=== PATIENT | male | born 1935 | race Caucasian/White ===

== ENCOUNTER 2022-02-09 04:40 | Day surgery (SDC) | payer OTHER, BC ==
[2022-02-08 14:04] VITALS: BMI 30.2
[2022-02-09 11:52] VITALS: TEMP 97.3
[2022-02-09 12:56] VITALS: BP 115/53; PULSE 53; RESP 16
== END 2022-02-09 12:56 | disposition home or self-care (01) ==
LOC: JASU-ENDO 04:40
PROVIDERS: ATTEND Internal Medicine Gastroenterology
PROC: 0DBL8ZX Excision of Transverse Colon, Via Natural or Artificial Opening Endoscopic, Diagnostic (ICD-10-PCS; 2022-02-09)
PROC: 0DBP8ZX Excision of Rectum, Via Natural or Artificial Opening Endoscopic, Diagnostic (ICD-10-PCS; 2022-02-09)
PROC: 0DBH8ZX Excision of Cecum, Via Natural or Artificial Opening Endoscopic, Diagnostic (ICD-10-PCS; 2022-02-09)
PROC: 0DBK8ZX Excision of Ascending Colon, Via Natural or Artificial Opening Endoscopic, Diagnostic (ICD-10-PCS; principal; 2022-02-09 10:45)
DX: D64.9 Anemia, unspecified (principal); K57.30 Diverticulosis of large intestine without perforation or abscess without bleeding; K64.8 Other hemorrhoids; D12.2 Benign neoplasm of ascending colon; D12.0 Benign neoplasm of cecum
CPT/HCPCS: 88305-TC

== ENCOUNTER 2024-10-17 13:25 | Observation (INO) | payer OTHER, BC ==
[2024-10-17] MEDS ORDERED: ACETAMINOPHEN INJECTION 100 ML ONE (14:09)
[2024-10-17] MEDS: ACETAMINOPHEN 1000 MG/100 ML BAG IVPB ONE (14:13)
[2024-10-17 14:38] LABS: ABSOLUTE IMMATURE GRANULOCYTES 0.04 x10^3/uL (0.0-0.031); BASOPHILS # 0.05 x10^3/uL (0.01-0.08); EOSINOPHIL % 2.6 % (0.8-7.0); EOSINOPHILS # 0.20 x10^3/uL (0.04-0.54); MCHC 32.6 g/dl (32.3-36.5); MEAN CELL VOLUME 98.5 fl (79.0-92.2); MEAN PLT VOLUME 11.3 fl (9.4-12.4); MONOCYTE # 0.69 x10^3/uL (0.30-0.82); MONOCYTE % 9.1 % (5.3-12.2); RDW 14.0 % (12.6-16.6)
[2024-10-17 14:39] LABS: GLUCOSE,RANDOM 127.0 mg/dL (74-106)
[2024-10-17 14:40] LABS: TOT PROT 7.0 g/dl (6.4-8.2)
[2024-10-17 14:41] LABS: CO2 26.0 mmol/L (21-32)
[2024-10-17 14:42] LABS: ALK PHOS 79.0 U/L (40-150)
[2024-10-17 14:44] LABS: INR 0.89 (0.83-1.09); PROTHROMBIN TIME (PATIENT) 9.7 SEC (9.7-13.0)
[2024-10-17 14:45] LABS: CREATININE 0.94 mg/dL (0.55-1.3); SGOT/AST 34.0 U/L (5-34); SGPT/ALT 26.0 U/L (0-55)
[2024-10-17 14:47] LABS: ACTIVATED PTT 27.8 SECONDS (25.2-36.5)
[2024-10-17 14:53] LABS: N-TERMINAL BNP 433.1 pg/mL (0-299.9)
[2024-10-17 15:05] LABS: HCV DIAGNOSTIC IN-HOUSE W/RFLX NON-REACTIVE (NONREACTIVE)
[2024-10-17 15:06] LABS: HIV INTERPRETATION NEGATIVE (NEGATIVE)
[2024-10-17] MEDS ORDERED: KETOROLAC TROMETHAMINE 15 MG/ML VIAL ONE (16:14)
[2024-10-17] MEDS: KETOROLAC TROMETHAMINE 15 MG/ML VIAL IVPUSH ONE (16:21)
[2024-10-17] MEDS ORDERED: ASPIRIN COATED 81 MG TABLET.EC ONE (18:02)
[2024-10-17] MEDS ORDERED: TAMSULOSIN HCL 0.4 MG CAP ONE (18:02)
[2024-10-17] MEDS: ASPIRIN COATED 81 MG TABLET.EC PO SCH (18:06)
[2024-10-17] MEDS: TAMSULOSIN HCL 0.4 MG CAP PO SCH (18:06)
[2024-10-17 18:07] VITALS: RESP 18
[2024-10-17 20:28] VITALS: BMI 28.0
[2024-10-18] MEDS: ACETAMINOPHEN 500 MG TABLET (FP) PO PRN (02:38)
[2024-10-18 08:34] LABS: ABSOLUTE IMMATURE GRANULOCYTES 0.02 x10^3/uL (0.0-0.031); BASOPHILS # 0.03 x10^3/uL (0.01-0.08); EOSINOPHIL % 2.5 % (0.8-7.0); EOSINOPHILS # 0.20 x10^3/uL (0.04-0.54); MCHC 32.7 g/dl (32.3-36.5); MEAN CELL VOLUME 97.9 fl (79.0-92.2); MEAN PLT VOLUME 11.1 fl (9.4-12.4); MONOCYTE # 0.70 x10^3/uL (0.30-0.82); MONOCYTE % 8.8 % (5.3-12.2); RDW 14.1 % (12.6-16.6)
[2024-10-18] MEDS ORDERED: NADOLOL 20 MG TABLET (FP) ONE (09:37)
[2024-10-18] MEDS: amLODIPine BESYLATE 10 MG TABLET (FP) PO SCH (09:49)
[2024-10-18] MEDS: FINASTERIDE 5 MG TABLET (FP) PO SCH (09:49)
[2024-10-18] MEDS: EZETIMIBE 10 MG TABLET (FP) PO SCH (09:49)
[2024-10-18] MEDS: FUROSEMIDE 40 MG TABLET (FP) PO SCH (09:49)
[2024-10-18] MEDS: NADOLOL 40 MG TABLET (FP) PO SCH (09:50)
[2024-10-18 09:54] LABS: GLUCOSE,RANDOM 97.0 mg/dL (74-106)
[2024-10-18 09:56] LABS: CO2 26.0 mmol/L (21-32)
[2024-10-18 10:00] LABS: CREATININE 0.8 mg/dL (0.55-1.3)
[2024-10-18] MEDS ORDERED: ASPIRIN COATED 81 MG TABLET.EC PO SCH (16:00)
[2024-10-19] MEDS ORDERED: NADOLOL 20 MG TABLET (FP) ONE (09:08)
[2024-10-19] MEDS: ENOXAPARIN NA (PORCINE) 40 MG/0.4 ML DISP.SYRIN SQ SCH (09:15)
[2024-10-19] MEDS: ASPIRIN COATED 81 MG TABLET.EC PO SCH (09:15)
[2024-10-19 10:30] VITALS: BP 157/70; PULSE 62; TEMP 97.9
== END 2024-10-19 09:45 | disposition home or self-care (01) ==
LOC: JER 13:25 → INTOOBSV 17:16 → UNDOADMOB 17:16 → JERBED 17:16 → J5S 18:13 → JERBED 18:13
PROVIDERS: ADMIT Internal Medicine
PROC: 3E033NZ Introduction of Analgesics, Hypnotics, Sedatives into Peripheral Vein, Percutaneous Approach (ICD-10-PCS; principal; 2024-10-17)
PROC: 3E023GC Introduction of Other Therapeutic Substance into Muscle, Percutaneous Approach (ICD-10-PCS; 2024-10-17)
PROC: 3E0333Z Introduction of Anti-inflammatory into Peripheral Vein, Percutaneous Approach (ICD-10-PCS; 2024-10-17)
DX: M25.511 Pain in right shoulder (principal); I25.10 Atherosclerotic heart disease of native coronary artery without angina pectoris; M25.512 Pain in left shoulder; Z74.09 Other reduced mobility; W01.0XXA Fall on same level from slipping, tripping and stumbling without subsequent striking against object, initial encounter; Y93.89 Activity, other specified; R00.1 Bradycardia, unspecified; N40.0 Benign prostatic hyperplasia without lower urinary tract symptoms; Y92.098 Other place in other non-institutional residence as the place of occurrence of the external cause; R03.0 Elevated blood-pressure reading, without diagnosis of hypertension; I73.9 Peripheral vascular disease, unspecified; E78.5 Hyperlipidemia, unspecified; I99.8 Other disorder of circulatory system; Z90.49 Acquired absence of other specified parts of digestive tract
CPT/HCPCS: 36415; 70450-TC; 70486-TC; 71045-TC-FY; 72125-TC; 73030-TC-LT-FY; 73030-TC-RT-FY; 80048; 80053; 83880; 84484; 85025; 85610; 85730; 86803; 86850; 86900; 86901; 87389; 93005; 93010; 96372; 96374; 96375; 97116-GP; 97161-GP; 99285-25; G0378